=== PATIENT | male | born 1960 | race Caucasian/White ===

== ENCOUNTER 2016-05-04 07:19 | Day surgery (SDC) | payer BC ==
--- NOTE | ~2016-05-04 | EGD ---
EGD REPORT [facility] [address] [place] [address] NAME: BRYANT HARGROVE : [birth year] STATUS : REG [facility]#: [id number] AGE: 56 ADM/REG DATE : 05/04/16 MR#: [id number] REPORT SERV DATE: 05/04/16 DICTATED BY: LUCA EDMONDS DATE: 05/04/16 REPORT STATUS : Draft [facility] DATE: 05/04/16 Endoscopy Center Patient Name: Bryant Hargrove Date of : 1960 Attending MD: LUCA EDMONDS, Procedure Date No Time: 05/04/2016 Procedure: Upper GI endoscopy Indications: Follow-up of Lizama's esophagus, Lizama's low grade dysplasia, Follow-up of previous ablation treatment of Lizama's esophagus. Note:patient is not taking PPI as recomended and only taking once daily. Referring MD: PENNY DEXTER Medicines: Monitored Anesthesia Care Complications: No immediate complications. Estimated blood loss: None. Procedure: Pre-Anesthesia Assessment: - ASA Grade Assessment: II - A patient with mild systemic disease. After obtaining informed consent, the endoscope was passed under direct vision. Throughout the procedure, the patient's blood pressure, pulse, and oxygen saturations were monitored continuously. The GIF H190 [id number] was introduced through the mouth, and advanced to the second part of duodenum. The upper GI endoscopy was accomplished without difficulty. The patient tolerated the procedure well. Findings: LA Grade C (one or more mucosal breaks continuous between tops of 2 or more mucosal folds, less than 75% circumference) esophagitis with no bleeding was found in the lower third of the esophagus. Lizama's esophagus was present in the lower third of the esophagus. The maximum longitudinal extent of these mucosal changes was 2 cm in length. A 4 cm hiatus hernia was present. The exam of the stomach was otherwise normal. The cardia and gastric fundus were normal on retroflexion. The examined duodenum was normal. Impression: - LA Grade C reflux esophagitis. - Lizama's esophagus. - Hiatus hernia. - Normal examined duodenum. Recommendation: - Return to previous diet. - Use Protonix (pantoprazole) 40 mg PO BID. - Repeat the upper endoscopy in 3 months for retreatment. EGD REPORT [address] [address] NAME: BRYANT HARGROVE : [birth year] STATUS : REG [facility]#: [id number] AGE: 56 ADM/REG DATE : 05/04/16 MR#: [id number] REPORT SERV DATE: 05/04/16 DICTATED BY: LUCA EDMONDS DATE: 05/04/16 REPORT STATUS : Draft TRANSCRIBED BY: [employer] DATE: 05/04/16 - Return to previous diet. - Continue present medications. Procedure Code(s): --- Professional --- 96002, Esophagogastroduodenoscopy, flexible, transoral; diagnostic, including collection of specimen(s) by brushing or washing, when performed (separate procedure) Diagnosis Code(s): --- Professional --- K21.0, Gastro-esophageal reflux disease with esophagitis K44.9, Diaphragmatic hernia without obstruction or gangrene K22.710, Lizama's esophagus with low grade dysplasia Z09, Encounter for follow-up examination after completed treatment for conditions other than malignant neoplasm CPT copyright 2013 [employer]. All rights reserved. The codes documented in this report are preliminary and upon insurance processing clerk review may be revised to meet current compliance requirements. LUCA EDMONDS, 05/04/2016 9:02 AM Number of Addenda: 0 Note Initiated On: 05/04/2016 8:32 AM Scope Withdrawal Time 0 hours 0 minutes 0 seconds [address] [id number]
[~2016-05-04 07:19] MED LIST: ACET500CAP PO; ADVIL PO; CIALIS5 MG PO; NEXIUM40 PO; OTC SLEEP MED PO; TESTOST CYP100 MG/ML IM
[2016-10-17] MEDS ORDERED: PRIN20 PO (13:51)
[2016-11-01] MEDS ORDERED: SUCR PO (11:20)
[2016-11-01] MEDS ORDERED: PERCOCET 7.5/321 TAB PO (11:20)
== END 2016-05-04 23:59 | disposition home or self-care (01) ==
LOC: DMU 07:19
PROVIDERS: Internal Medicine Gastroenterology
PROC: 0DJ08ZZ Inspection of Upper Intestinal Tract, Via Natural or Artificial Opening Endoscopic (ICD-10-PCS; principal; 2016-05-04 09:00)
DX: K21.0 Gastro-esophageal reflux disease with esophagitis (principal); K44.9 Diaphragmatic hernia without obstruction or gangrene; K22.710 Barrett's esophagus with low grade dysplasia; Z09 Encounter for follow-up examination after completed treatment for conditions other than malignant neoplasm; K85.90 Acute pancreatitis without necrosis or infection, unspecified; Z79.899 Other long term (current) drug therapy; Z79.1 Long term (current) use of non-steroidal anti-inflammatories (NSAID)

== ENCOUNTER 2016-11-02 05:54 | Day surgery (SDC) | payer BC ==
[~2016-11-02] VITALS: Ht 182.9 cm; Wt 93.0 kg
--- NOTE | ~2016-11-02 | EGD ---
EGD REPORT [facility] [address] [address] NAME: BRYANT HARGROVE : [birth year] STATUS : REG [facility]#: [id number] AGE: 56 ADM/REG DATE : 11/02/16 MR#: [id number] REPORT SERV DATE: 11/02/16 DICTATED BY: LUCA EDMONDS DATE: 11/02/16 REPORT STATUS : Draft [facility] DATE: 11/02/16 Endoscopy Center Patient Name: Bryant Hargrove Date of : 1960 Attending MD: LUCA EDMONDS, Procedure Date No Time: 11/02/2016 Procedure: Upper GI endoscopy Indications: For therapy of Lizama's esophagus, Lizama's low grade dysplasia Referring MD: PENNY DEXTER Medicines: Monitored Anesthesia Care Complications: No immediate complications. Estimated blood loss: None. Procedure: Pre-Anesthesia Assessment: - ASA Grade Assessment: III - A patient with severe systemic disease. After obtaining informed consent, the endoscope was passed under direct vision. Throughout the procedure, the patient's blood pressure, pulse, and oxygen saturations were monitored continuously. The GIF H190 [id number] was introduced through the mouth, and advanced to the second part of duodenum. The upper GI endoscopy was accomplished without difficulty. The patient tolerated the procedure well. Findings: The esophagus and gastroesophageal junction were examined with white light. Lizama's esophagus was present. The maximum longitudinal extent of these esophageal mucosal changes was 2 cm in length. Circumferential radiofrequency ablation of Lizama's esophagus was performed, using the Halo 360 catheter and balloon-based endoscopic ablation system. The endoscope was introduced in a [id number] manner with the ablation catheter. The balloon ablation catheter was positioned under direct visualization so that the proximal edge of the electrode was slightly above the proximal edge of the Lizama's mucosa. The balloon was automatically inflated and energy was applied at 10 J/cm2d. The ablation zone was then cleaned of overlying coagulative debris using irrigation and suction via the endoscope and a cleaning cap. The guidewire was reinserted and then the ablation catheter was reintroduced into the esophagus. The ablation catheter was positioned under direct visualization so that the proximal edge of the electrode was at the proximal edge of the ablation zone. Reinflation and a second round of ablation was performed with the application of 10 J/cm2 to re-treat the Lizama's epithelium already treated with the first round of ablation. The ablation catheter was then removed. The areas of the esophagus where Lizama's mucosa had been ablated were then carefully examined with the EGD REPORT [address] [address] NAME: BRYANT HARGROVE : [birth year] STATUS : REG [facility] [place] PAT#: [id number] AGE: 56 ADM/REG DATE : 11/02/16 MR#: [id number] REPORT SERV DATE: 11/02/16 DICTATED BY: LUCA EDMONDS DATE: 11/02/16 REPORT STATUS : Draft TRANSCRIBED BY: [employer] DATE: 11/02/16 endoscope. Areas of Lizama's esophagus were completely treated. A 4 cm hiatus hernia was present. A few non-bleeding localized erosions were found in the gastric body. There were no stigmata of recent bleeding. The exam of the stomach was otherwise normal. The cardia and gastric fundus were normal on retroflexion. The examined duodenum was normal. Impression: - Lizama's esophagus. Treated with radiofrequency ablation. - Hiatus hernia. - Erosive gastropathy. - Normal examined duodenum. Recommendation: - Patient has a contact number available for emergencies. The signs and symptoms of potential delayed complications were discussed with the patient. Return to normal activities tomorrow. Written discharge instructions were provided to the patient. - Return to previous diet. - Continue present medications. - Repeat the upper endoscopy in 3 months for retreatment. Procedure Code(s): --- Professional --- 41705, Esophagogastroduodenoscopy, flexible, transoral; with ablation of tumor(s), polyp(s), or other lesion(s) (includes pre- and post-dilation and guide wire passage, when performed) Diagnosis Code(s): --- Professional --- K44.9, Diaphragmatic hernia without obstruction or gangrene K31.9, Disease of stomach and duodenum, unspecified K22.710, Lizama's esophagus with low grade dysplasia CPT copyright 2013 [employer]. All rights reserved. The codes documented in this report are preliminary and upon car usher review may be revised to meet current compliance requirements. LUCA EDMONDS, 11/02/2016 8:27 AM Number of Addenda: 0 Note Initiated On: 11/02/2016 7:54 AM EGD REPORT [facility] [address] [facility] [address] NAME: BRYANT HARGROVE : [birth year] STATUS : REG [facility] [place] PAT#: [id number] AGE: 56 ADM/REG DATE : 11/02/16 MR#: [id number] REPORT SERV DATE: 11/02/16 DICTATED BY: LUCA EDMONDS DATE: 11/02/16 REPORT STATUS : Draft TRANSCRIBED BY: [employer] DATE: 11/02/16 Scope Withdrawal Time 0 hours 0 minutes 0 seconds [address] [place] [id number]
[~2016-11-02 05:54] MED LIST changes: +PERCOCET 7.5/321 TAB PO; +PRIN20 PO; +SUCR PO
== END 2016-11-02 23:59 | disposition home or self-care (01) ==
LOC: DMU 05:54
PROVIDERS: Internal Medicine Gastroenterology
PROC: 0D558ZZ Destruction of Esophagus, Via Natural or Artificial Opening Endoscopic (ICD-10-PCS; principal; 2016-11-02 07:30)
DX: K22.710 Barrett's esophagus with low grade dysplasia (principal); K44.9 Diaphragmatic hernia without obstruction or gangrene; K31.9 Disease of stomach and duodenum, unspecified; I10 Essential (primary) hypertension; K21.9 Gastro-esophageal reflux disease without esophagitis; F17.210 Nicotine dependence, cigarettes, uncomplicated; K85.90 Acute pancreatitis without necrosis or infection, unspecified; Z90.49 Acquired absence of other specified parts of digestive tract; Z98.890 Other specified postprocedural states
CPT/HCPCS: C1725